=== PATIENT | female | born 1935 | race Two or more races ===

== ENCOUNTER 2017-09-07 10:44 | Emergency (ER) | payer OTHER, MEDICAID ==
[2017-09-07] MEDS: DIPHTH/TET/ACEL PERTUSS (ADULT) 0.5 ML VIAL IM* (11:00)
[2017-09-07] MEDS: LIDOCAINE 2%/EPI MPF (SDV) 20 ML VIAL INJ (11:00)
[2017-09-07] MEDS: HYDROCODONE/APAP (5/325) TAB PO (11:39)
== END 2017-09-07 13:30 | disposition home or self-care (01) ==
LOC: E/R 10:44
DX: S01.81XA Laceration without foreign body of other part of head, initial encounter (principal); S09.90XA Unspecified injury of head, initial encounter; W01.190A Fall on same level from slipping, tripping and stumbling with subsequent striking against furniture, initial encounter; Y92.9 Unspecified place or not applicable; Z23 Encounter for immunization
CPT/HCPCS: 12013; 70450; 72125; 90471; 90715; 99285-25